=== PATIENT | female | born 1955 | race Caucasian/White ===

== ENCOUNTER → 2020-07-19 | Outpatient (CLI) | payer MEDICARE, OTHER ==
[~2020-07-19] MED LIST: CALC-126 PO; METH10TA6 PO; METH5TAB6 PO; METO25TA35 PO; MULT-658 PO; PRAV40TA2 PO; VIT1CAPS42 PO
== END | disposition home or self-care (01) ==
LOC: STAR 10:34
PROVIDERS: ATTEND Surgery
DX: Z01.818 Encounter for other preprocedural examination (principal); Z20.828 Contact with and (suspected) exposure to other viral communicable diseases
CPT/HCPCS: 87635; 93005

== ENCOUNTER 2020-07-23 06:42 | Day surgery (SDC) | payer MEDICARE, OTHER ==
[~2020-07-23] VITALS: Ht 162.6 cm; Wt 53.6 kg
[~2020-07-23 06:42] MED LIST changes: +BUPIVACAINE/PF 0.5% ONE; +EPINEPHRINE 1 MG/ML, 1ML ONE
[2020-07-23] MEDS ORDERED: LACTATED RINGERS 1,000 ML IV SCH (07:30)
[2020-07-23] MEDS ORDERED: CHLORHEXIDINE 15 ML UDC MM ONE (07:30)
[2020-07-23] MEDS ORDERED: LIDOCAINE-MPF 1%, 2ML INFIL ONE (07:30)
[2020-07-23] MEDS ORDERED: MIDAZOLAM 1 MG/ML, 2ML ONE (09:02)
[2020-07-23] MEDS ORDERED: CEFOTETAN 1 GM ONE ×2 (09:03)
[2020-07-23] MEDS ORDERED: FENTANYL PF 250 MCG/5ML ONE (09:03)
[2020-07-23] MEDS ORDERED: DEXAMETHASONE 4 MG/ML, 1ML ONE (09:04)
[2020-07-23] MEDS ORDERED: PROPOFOL 10 MG/ML, 20ML ONE (09:04)
[2020-07-23] MEDS ORDERED: GLYCOPYRROLATE 0.2MG/1ML, 5ML ONE (09:04)
[2020-07-23] MEDS ORDERED: ROCURONIUM 10MG/ML,5ML ONE (09:04)
[2020-07-23] MEDS ORDERED: NEOSTIGMINE 1 MG/ML, 10ML ONE (09:04)
[2020-07-23] MEDS ORDERED: ONDANSETRON 2MG/ML, 2ML ONE (09:04)
[2020-07-23] MEDS ORDERED: KETOROLAC 30 MG/1 ML ONE (09:04)
[2020-07-23] MEDS ORDERED: OXYcodone 5 MG/5 ML ORAL.SOL UDC PO PRN (09:30)
[2020-07-23] MEDS ORDERED: ACETAMINOPHEN 325 MG TABLET PO PRN (09:30)
[2020-07-23] MEDS ORDERED: HALOPERIDOL 5 MG/ML IV PRN (09:30)
[2020-07-23] MEDS ORDERED: PROMETHAZINE 25 MG/ML, 1ML IVPush PRN (09:30)
[2020-07-23] MEDS ORDERED: hydrALAzine 20 MG/ML, 1ML IV PRN (09:30)
[2020-07-23] MEDS ORDERED: morphine SULFATE 10 MG/ML, 1ML IVPush PRN (09:30)
[2020-07-23] MEDS ORDERED: LABETALOL 5MG/ML, 20ML IV PRN (09:30)
[2020-07-23] MEDS ORDERED: FENTANYL PF 100 MCG/2ML IV PRN (09:30)
[2020-07-23] MEDS ORDERED: MEPERIDINE/PF 25MG/0.5ML IVPush PRN (09:30)
[2020-07-23] MEDS ORDERED: HYDROmorphone 1 MG/ML, 1ML INJ IVPush PRN (09:30)
[2020-07-23] MEDS ORDERED: MEPERIDINE/PF 25MG/ML,1ML ONE (10:51)
== END 2020-07-23 13:10 | disposition home or self-care (01) ==
LOC: OUT 06:42
PROVIDERS: ATTEND Surgery
DX: K80.10 Calculus of gallbladder with chronic cholecystitis without obstruction (principal); K82.8 Other specified diseases of gallbladder; E05.00 Thyrotoxicosis with diffuse goiter without thyrotoxic crisis or storm; Z79.899 Other long term (current) drug therapy
CPT/HCPCS: 47562; 88304; J0171; J1100; J2175; J2250; J2405; J2704; J2710; J3010; J7120; J1885